=== PATIENT | male | born 1975 | race American Indian/Alaskan Native ===

== ENCOUNTER 2020-12-08 21:38 | Emergency (ER) | payer MEDICAID ==
[2020-12-08 23:08] VITALS: BP 111/71
[2020-12-08] MEDS ORDERED: ASPIRIN 325 MG TAB PO ONE (23:08)
--- NOTE | 2020-12-08 23:53 | XRay Report ---
CHEST 2 VIEWS INDICATION / CLINICAL INFORMATION: SOB. COMPARISON: None available. FINDINGS: SUPPORT DEVICES: None. HEART / MEDIASTINUM: No significant abnormality. LUNGS / PLEURA: Question mild density is seen within the right upper lung. Left lung is clear No pneu mothorax. ADDITIONAL FINDINGS: No significant additional findings. IMPRESSION: 1. Possible density in the right lung apex. Signer Name: Celso Solano MD Signed: 12/08/2020 11:48 PM Workstation Name: [id number]
[2020-12-09 00:22] LABS: Basophils % (Auto) 0.3 % (0.0-1.8); Eosinophils # (Auto) 0.2 K/mm3 (0.0-0.4); Eosinophils % (Auto) 3.9 % (0.0-4.3); Hematocrit 36.5 % (35.5-45.6); Hemoglobin 12.5 gm/dl (11.8-15.2); Lymphocytes # (Auto) 2.6 K/mm3 (1.2-5.4); Lymphocytes % (Auto) 40.4 % (13.4-35.0); Mean Corpuscular HGB Conc 34 % (32-34); Mean Corpuscular Volume 98 fl (84-94); Monocytes # (Auto) 0.5 K/mm3 (0.0-0.8); Monocytes % (Auto) 7.4 % (0.0-7.3); Platelet Count 240 K/mm3 (140-440); Red Blood Count 3.71 M/mm3 (3.65-5.03); Red Cell Distribution Width 14.5 % (13.2-15.2)
[2020-12-09 00:41] LABS: Alanine Aminotransferase 17 units/L (7-56); Albumin 4.2 g/dL (3.9-5); BUN/Creatinine Ratio 17; Blood Urea Nitrogen 15 mg/dL (9-20); Calcium 9.1 mg/dL (8.4-10.2); Hemolysis Index 63
--- NOTE | 2020-12-09 02:09 | Emergency Department Report ---
ED Shortness of Breath HPI - General Chief Complaint: Dyspnea/Respdistress Stated Complaint: DIZZY/SLOW BREATHING Time Seen by Provider: 12/09/20 01:59 Source: patient Mode of arrival: Ambulatory Limitations: No Limitations - History of Present Illness Initial Comments: 45-year-old male, no past medical history, presents to ED with headache and shortness of breath x1 day. Patient reports he has been having "slow breathing." He denies any fever, cough, chest pain, leg pain or swelling. Patient states he received the [place] COVID-19 vaccine. Patient reports tobacco and marijuana use. MD Complaint: shortness of breath -: days(s) (1) Severity: mild Consistency: intermittent Improves With: nothing Worsens With: nothing Treatments Prior to Arrival: none - Related Data Previous Rx's Medication Instructions Recorded Last Taken Type Azithromycin [Zithromax Z-MARE] 250 mg PO QDAY #6 tablet 12/09/20 Unknown Rx Allergies Allergy/AdvReac Type Severity Reaction Status Date / Time No Known Allergies Allergy Verified 12/09/20 01:59 ED Review of Systems ROS: Stated complaint: DIZZY/SLOW BREATHING Other details as noted in HPI Comment: All other systems reviewed and negative Constitutional: denies: chills, fever Respiratory: shortness of breath. denies: cough Cardiovascular: denies: chest pain Gastrointestinal: denies: nausea, vomiting Musculoskeletal: other (Denies leg pain or swelling) ED Past Medical Hx - Past Medical History Previous Medical History?: Yes Hx Psychiatric Treatment: Yes (schizophrenia) Hx Asthma: Yes - Surgical History Past Surgical History?: No - Medications Home Medications: Home Medications Medication Instructions Recorded Confirmed Last Taken Type Azithromycin [Zithromax Z-MARE] 250 mg PO QDAY #6 tablet 12/09/20 Unknown Rx ED Physical Exam - General Limitations: No Limitations General appearance: alert, in no apparent distress - Head Head exam: Present: atraumatic, normocephalic - Eye Eye exam: Present: normal appearance, EOMI - ENT ENT exam: Present: mucous membranes moist - Neck Neck exam: Present: normal inspection - Respiratory Respiratory exam: Present: normal lung sounds bilaterally. Absent: respiratory distress, wheezes, rales - Cardiovascular Cardiovascular Exam: Present: regular rate, normal rhythm - GI/Abdominal GI/Abdominal exam: Present: soft. Absent: distended, tenderness - Extremities Exam Extremities exam: Present: normal inspection. Absent: pedal edema, calf tenderness - Neurological Exam Neurological exam: Present: alert, oriented X3 - Psychiatric Psychiatric exam: Present: normal affect, normal mood - Skin Skin exam: Present: warm, dry, intact, normal color ED Course Vital Signs 12/08/20 23:04 Temperature 97.7 F Pulse Rate 72 Respiratory 16 Rate Blood Pressure 111/71 [Right] O2 Sat by Pulse 100 Oximetry ED Medical Decision Making - Lab Data Result diagrams: 12/08/20 23:44 12/08/20 23:44 - EKG Data -: EKG Interpreted by Hi EKG shows normal: sinus rhythm, axis, intervals, QRS complexes, ST-T waves Rate: normal - EKG Data Interpretation: no acute changes - Radiology Data Radiology results: report reviewed, image reviewed - Medical Decision Making 45-year-old male, no past medical history, presents to ED with headache and shortness of breath x1 day. Patient reports he has been having "slow breathing." He denies any fever, cough, chest pain, leg pain or swelling. Chest x-ray shows possible density in right lung apex. Patient is in no res piratory distress. O2 sats are normal. Will discharge with prescriptions. Outpatient follow-up advised, return precautions given. Critical care attestation.: If time is entered above; I have spent that time in minutes in the direct care of this critically ill patient, excluding procedure time. ED Disposition Clinical Impression: Pneumonia Disposition: DC-01 TO HOME OR SELFCARE Is pt being admited?: No Condition: Stable Instructions: Community-Acquired Pneumonia, Adult, Bacterial Pneumonia (ED) Prescriptions: Azithromycin [Zithromax Z-MARE] 250 mg PO QDAY #6 tablet Referrals: [facility] [Provider Group] - 3-5 Days [facility], [Primary Care Provider] - 3-5 Days Time of Disposition: 02:09
--- NOTE | 2020-12-10 19:18 | Electrocardiograph Report ---
[facility] Test Date: 2020-12-08 Test Time: 23:09:14 Pat Name: TRACI TORIBIO Department: Room: Gender: M Coat Check Attendant: ANA MARIA : 1975 Requested By: AZALIA AGUILA Order Number: [id number] Reading MD: Jose J Storey Measurements Intervals [place] Rate: 65 P: 69 VA: 139 QRS: 68 QRSD: 87 T: 57 QT: 382 QTc: 398 Interpretive Statements Sinus rhythm Early repolarization ST changes No previous ECG available for comparison Electronically Signed On 12-10-2020 19:17:57 EDT by Jose J Storey
== END 2020-12-09 03:52 | disposition home or self-care (01) ==
LOC: ED 21:38
DX: J18.9 Pneumonia, unspecified organism (principal); R51.9 Headache, unspecified; J45.909 Unspecified asthma, uncomplicated; F20.9 Schizophrenia, unspecified
CPT/HCPCS: 36415; 71046; 80053; 84484; 85025; 93005; 99283